=== PATIENT | male | born 1990 | race Caucasian/White ===

== ENCOUNTER 2018-09-15 20:47 | Emergency (ER) | payer OTHER ==
--- OUTSIDE RECORDS SUMMARY | 2018-09-15 20:55 | XMS REPORT | Continuity of Care Document ---
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 Family History Date Family Member(s) Observation Comments General No Current Problems Social History Type Date Description Comments Sex Unknown Lives With Alone Hand Dominance Right-handed ETOH Use Denies alcohol use Tobacco Use Start: Unknown Patient has never smoked Recreational Drug Use Denies Drug Use Smoking Status Reviewed: 09/10/18 Patient has never smoked Exercise Type/Frequency Exercises regularly Allergies, Adverse Reactions, Alerts Description No Known Drug Allergies Medications Active Medications SIG Qnty Indications Ordering Provider Date Tumeric 500 mg once a Unknown day Magnesium 1 tab po every Unknown 250mg Tablets other day Amitriptyline HCL 1 po qd for 5 Unknown 25mg days the 2 tabs Tablets po qd for 2 weeks then 3 tabs po qd Indomethacin 1 tab po tid Unknown 25mg Capsules Propranolol HCL ER 1 by mouth Unknown 80mg Caps every day ER 24HR Vitamin B-Complex 1 by mouth Unknown Tablets every day Co Q-10 1 by mouth qd Unknown 100mg Capsules History Medications Amitriptyline HCL Pedro Delaney, 09/10/2018 - 10mg 09/09/2018 Tablets Verapamil HCL 1 tab po bid for 90tabs Pedro Delaney, 08/15/2018 - 80mg 4 days then 1 09/09/2018 Tablets tab po q am and 2 tabs po q pm Prednisone prednisone5 45tabs Pedro Delaney, 08/09/2018 - 10mg Tablets pills in am by 09/09/2018 mouthfor 3 days; 4 pills for 3days;3 pills for 3 days; 2 pills for 3 days1 pill 3 days then stop No Active Medications Unknown 11/21/2016 - 08/02/2018 No Active Medications Unknown 10/13/2016 - 10/13/2016 Naproxen 1 tablet with 60tabs M25.552 Neno F 10/13/2016 - 500mg Tablets food by mouth MD Tk 11/20/2016 twice a day Amitriptyline HCL Unknown - 10mg 09/10/2018 Tablets Vital Signs Date Vital Result Comment 09/10/2018 9:07am Height 67 inches 5'7" Weight 155.00 lb Heart Rate 72 /min BP Systolic Sitting 102 mmHg BP Diastolic Sitting 68 mmHg Respiratory Rate 15 /min BMI (Body Mass Index) 24.3 kg/m2 08/02/2018 11:11am Height 67 inches 5'7" Weight 155.00 lb Heart Rate 80 /min BP Systolic 132 mmHg BP Diastolic 82 mmHg BMI (Body Mass Index) 24.3 kg/m2 11/29/2016 2:39pm Height 67 inches 5'7" Weight 155.00 lb Heart Rate 64 /min BP Systolic 120 mmHg BP Diastolic 70 mmHg Body Temperature 97.2 F Pain Level 2 BMI (Body Mass Index) 24.3 kg/m2 11/21/2016 1:22pm Height 67 inches 5'7" Weight 155.00 lb BP Systolic 136 mmHg BP Diastolic 80 mmHg Respiratory Rate 20 /min Pain Level 3 BMI (Body Mass Index) 24.3 kg/m2 10/13/2016 1:21pm Height 67 inches 5'7" Weight 155.00 lb BP Systolic 122 mmHg BP Diastolic 84 mmHg Respiratory Rate 17 /min Body Temperature 97.6 F Pain Level 4 BMI (Body Mass Index) 24.3 kg/m2 Results Test Date Facility Test Result H/L Range Note Xray 08/30/2018 [facility] MRI Thoracic Spine <pending> [address] [address] [phone] Encounters Type Date Location Provider Dx Diagnosis Office Visit 09/10/2018 [facility] Pedro Delaney, R51 Headache 9:00a [facility] MD Office Visit 08/02/2018 [facility] Pedro Delaney, R51 Headache 10:30a Office Visit 11/29/2016 [facility] Vivi Garduno, M25.552 Pain in left 2:30p Kia VELASQUEZ hip 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 He is seeing [facility] end of August and hopefully will be able to go to [place] for 4 months shortly after that and I will see him when he gets back. However if he stays here due to headache he will call here and I will see him sometime in September - he willtime things so that I see him after he completes a course of treatment with [facility].Follow up:5 MONTHS
[2018-09-15 21:01] VITALS: BP 142/99
[2018-09-15] MEDS ORDERED: LORazepam INJ* 2 MG/ML 1 ML VIAL IV PUSH ONE (21:23)
[2018-09-15] MEDS ORDERED: Lorazepam PYXIS KEY PRN (21:23)
[2018-09-15] MEDS ORDERED: NS 0.9% 1000 ML** 1,000 ML IV ONE (21:25)
[2018-09-15] MEDS ORDERED: NS 0.9% 1000 ML** 1,000 ML IV SCH (21:30)
[2018-09-15] MEDS ORDERED: Lorazepam PYXIS KEY ONE (21:35)
--- NOTE | 2018-09-15 22:27 | UC ---
Dizzy HPI HPI Summary: ONSET OF EXTREME DIZZINESS, LIGHTHEADEDNESS, TINGLING IN THE FACE/FINGERS AND PRESSURE IN THE HEAD ABOUT AN HOUR SYSTEMS ENG WHILE EATING DINNER. DENIES ANY ACUTE STRESSORS IN HIS LIFE. HAS A HISTORY OF CHRONIC HEADACHES AND HAS BEEN TAKING DAILY AMITRIPTYLINE AND PROPRANOLOL WITH MARGINAL EFFICACY. RECENTLY STOPPED A 10 DAY COURSE OF INDOMETHACIN. STATES THIS DOES NOT FEEL ANYTHING LIKE HIS NORMAL CHRONIC HEADACHES. HAD MRI BRAIN 07/20/18 THAT WAS NORMAL. NO RECENT TRAUMA. STATES DIZZINESS IS WORSE WHEN HE MOVES HIS HEAD AROUND BUT DOES NOT ENTIRELY GO AWAY EVEN WHEN HE IS STILL. - History Of Current Complaint Chief Complaint: UCDizziness Stated Complaint: LIGHT HEADED Time Seen by Provider: 09/15/18 21:05 Hx Obtained From: Patient Onset/Duration: Sudden Onset, Lasting Hours, Still Present Timing: Constant Severity Initially: Moderate Severity Currently: Moderate Pain Intensity: 0 Pain Scale Used: 0-10 Numeric Character: Lightheaded, Dizzy Aggravating Factor(s): Change In Head Position Alleviating Factor(s): Rest Associated Signs And Symptoms: Negative: Nausea, Tinnitus, SOB, Palpitations - Allergies/Home Medications Allergies/Adverse Reactions: Allergies Allergy/AdvReac Type Severity Reaction Status Date / Time No Known Allergies Allergy Verified 09/15/18 20:55 Home Medications: Home Medications Amitriptyline TAB* [Elavil TAB*] 50 mg PO BEDTIME 09/15/18 [History Confirmed ] Propranolol TAB* [Inderal TAB*] 80 mg PO DAILY 09/15/18 [History Confirmed 09/15] PMH/Surg Hx/FS Hx/Imm Hx Other Neurological History: CHRONIC HEADACHE - Surgical History Surgical History: Yes Surgery Procedure, Year, and Place: 05/2015 RIGHT RECTUS ABDOMINUS REPAIR; 2016 LEFT HIP ARTHROSCOPY; - Family History Known Family History: Positive: Non-Contributory - Social History Alcohol Use: None Alcohol Amount: 3 Substance Use Type: Marijuana Substance Use Comment - Amount & Last Used: today Smoking Status (MU): Never Smoked Tobacco Review of Systems All Other Systems Reviewed And Are Negative: Yes Constitutional: Positive: Negative Respiratory: Positive: Negative Cardiovascular: Positive: Negative Gastrointestinal: Positive: Negative Neurological: Positive: Headache, Paresthesia - FACE , FINGERS, Other - DIZZY Physical Exam Triage Information Reviewed: Yes Appearance: Well-Appearing, No Pain Distress, Well-Nourished Vital Signs: Initial Vital Signs Temp 97.4 F 09/15/18 20:57 Pulse 85 09/15/18 20:57 Resp 20 09/15/18 20:57 BP 142/99 09/15/18 20:57 Pulse Ox 98 09/15/18 20:57 Laboratory Last Values POC Glucose (mg/dL) 114 mg/dL (70-100) H 09/15/18 21:29 Vital Signs Reviewed: Yes Eyes: Positive: Conjunctiva Clear, Other: - PERRL, EOMI ENT: Positive: Hearing grossly normal, Pharynx normal, TMs normal Neck: Positive: Supple, Nontender, No Lymphadenopathy Respiratory Exam: Normal Cardiovascular Exam: Normal Abdomen Description: Positive: Soft Musculoskeletal: Positive: No Edema Neurological: Positive: Alert Psychological: Positive: Age Appropriate Behavior Skin: Negative: Rashes Re-Evaluation - Re-Evaluation First Eval Re-Evaluation Time: 22:30 - SLIGHT IMPROVEMENT AFTER 1L NS AND 1MG ATIVAN Change: Improved Dizzy Course/Dx - Course Course Of Treatment: PATIENT FELT SLIGHTLY BETTER AFTER 1 L OF NORMAL SALINE AND 1 MG OF ATIVAN. HIS SYMPTOMS MAY BE RELATED TO ANXIETY HOWEVER HE STATES THERE IS NO REASON FOR HIM TO BE OVERLY ANXIOUS OTHER THAN HIS CURRENT SYMPTOMS. DISCUSSED WITH HIM TRANSFER TO THE ER FOR FURTHER EVALUATION INCLUDING POSSIBLE IMAGING AND LABS. HE DECLINES AND STATES HE WILL FOLLOW-UP WITH HIS NEUROLOGIST IN [facility]. HE WILL GO TO THE ER WITHOUT FAIL IF HIS SYMPTOMS WORSEN. - Differential Dx/Diagnosis Provider Diagnosis: Dizziness Discharge - Sign-Out/Discharge Documenting (check all that apply): Patient Departure All imaging exams completed and their final reports reviewed: No Studies - Discharge Plan Condition: Stable Disposition: HOME Patient Education Materials: Dizziness (ED) Referrals: Pedro Delaney MD [Medical Doctor] - If Needed Alfred Victoria MD [Primary Care Provider] - If Needed Additional Instructions: YOU FELT SLIGHTLY BETTER AFTER 1 L OF NORMAL SALINE AND 1 MG OF ATIVAN. WE DISCUSSED TRANSFER TO THE EMERGENCY ROOM FOR FURTHER EVALUATION OF YOUR SYMPTOMS BUT YOU HAVE DECLINED IN FAVOR OF CAREFUL OBSERVATION AT HOME WHICH I THINK IS REASONABLE. CALL YOUR NEUROLOGIST IN [facility] FIRST THING MONDAY MORNING. GO TO THE ER WITHOUT FAIL IF YOU DEVELOP WORSENING SYMPTOMS. - Billing Disposition and Condition Condition: STABLE Disposition: Home
== END 2018-09-15 22:35 | disposition home or self-care (01) ==
LOC: EDUNIT# → UCEAST 20:47
DX: R42 Dizziness and giddiness (principal); R51 Headache
CPT/HCPCS: 93005; 96361; 96374; 99211; G0463; J2060

== ENCOUNTER 2020-04-15 16:32 | Inpatient (IN) ==
[2020-04-15] MEDS ORDERED: Midazolam 2 mg/2 ml VIAL 1 mg/ml 2 ml VIAL (2 mg) ONE (16:57)
[2020-04-15] MEDS ORDERED: fentaNYL 250 mcg/5 ml 50 MCG/ML 5 ml VIAL (250 MCG) ONE (16:57)
[2020-04-15] MEDS ORDERED: Rocuronium 50 mg VIAL 10 mg/ml 5 ml VIAL (50 mg) ONE (16:57)
[2020-04-15] MEDS ORDERED: Lidocaine 2% PF 5 ML VIAL ONE (16:58)
[2020-04-15] MEDS ORDERED: Phenylephrine 40 mcg/mL 10mL (400mcg) SYRINGE ONE (16:58)
[2020-04-15] MEDS ORDERED: Dexamethasone IV 4 MG/ML VIAL 1 ml VIAL ONE (17:00)
[2020-04-15] MEDS ORDERED: Propofol 10 MG/ML 20 ML BTL ONE (17:00)
[2020-04-15] MEDS ORDERED: EPHEDrine (Pressors) 50 MG/ML VIAL ONE (17:00)
[2020-04-15] MEDS ORDERED: Sterile Water for Inj 10 ML ONE (17:00)
[2020-04-15 17:39] LABS: ABS Eosinophils 0.1 10^3/ul (0-0.6); ABS Lymphocytes 1.7 10^3/ul (1.0-4.8); ABS Monocytes 0.6 10^3/ul (0-0.8); ABS Neutrophils 4.5 10^3/ul (1.5-7.7); Eosinophil % 0.8 %; Hematocrit 35 % (42-52); Mean Corpuscular HGB Conc 34 g/dL (31-36); Mean Corpuscular Hemoglobin 32 pg (27-31); Mean Corpuscular Volume 92 fL (80-94); Mean Platelet Volume 7.8 fL (7.4-10.4); Platelet Count 280 10^3/uL (150-450); Red Blood Count 3.77 10^6 /uL (4.18-5.48); Red Cell Distribution Width 13 % (10-15)
[2020-04-15 18:08] LABS: Albumin 4.5 g/dL (3.2-5.2); Albumin/Globulin Ratio 1.6 (1-3); BUN/Creatinine Ratio 13.4 (8-20); Calcium 9.6 mg/dL (8.6-10.3); EGFR African American 135.4 (>60); EGFR Non-African American 111.9 (>60); Globulin 2.8 g/dL (2-4); Potassium 4.5 mmol/L (3.5-5.0); Total Bilirubin 0.5 mg/dL (0.2-1.0); Total Protein 7.3 g/dL (6.4-8.9)
[2020-04-15] MEDS ORDERED: HYDROcodone/ACETAMIN 5/325 mg TAB PO PRN (18:08)
[2020-04-15] MEDS ORDERED: Lactated Ringers 1000 ml BAG 1,000 ML IV SCH (19:00)
[2020-04-15] MEDS: HYDROmorphone 0.5 MG/0.5 ML SYRINGE IV SLOW PU PRN (19:27)
[2020-04-16] MEDS: HYDROmorphone 0.5 MG/0.5 ML SYRINGE IV SLOW PU PRN ×5 (01:18→21:08)
[2020-04-16 04:29] LABS: ABS Eosinophils 0.1 10^3/ul (0-0.6); ABS Lymphocytes 2.4 10^3/ul (1.0-4.8); ABS Monocytes 0.8 10^3/ul (0-0.8); ABS Neutrophils 3.9 10^3/ul (1.5-7.7); Eosinophil % 1.1 %; Hematocrit 34 % (42-52); Hemoglobin 11.7 g/dL (14.0-18.0); Lymphocyte % 33.3 %; Mean Corpuscular HGB Conc 34 g/dL (31-36); Mean Corpuscular Hemoglobin 32 pg (27-31); Mean Corpuscular Volume 94 fL (80-94); Platelet Count 262 10^3/uL (150-450); Red Blood Count 3.65 10^6 /uL (4.18-5.48); Red Cell Distribution Width 13 % (10-15); White Blood Count 7.2 10^3/uL (3.5-10.8)
[2020-04-16] MEDS ORDERED: Bupivacaine 0.25% SDV 30 ML ONE (07:05)
[2020-04-16] MEDS ORDERED: ceFAZolin 2 GM PREMIX 2 GM/50 ML BAG ONE (07:06)
[2020-04-16] MEDS ORDERED: fentaNYL 100 mcg/2 ml 50 MCG/ML VIAL ONE ×2 (07:36→09:23)
[2020-04-16] MEDS ORDERED: Midazolam 2 mg/2 ml VIAL 1 mg/ml 2 ml VIAL (2 mg) ONE (07:36)
[2020-04-16] MEDS ORDERED: Rocuronium 50 mg VIAL 10 mg/ml 5 ml VIAL (50 mg) ONE ×2 (07:36→08:38)
[2020-04-16] MEDS ORDERED: Ondansetron 4 mg VIAL 2 MG/ML 2 ml VIAL ONE (08:13)
[2020-04-16] MEDS ORDERED: HYDROmorphone 1 MG/1 ML SYRINGE ONE ×2 (08:13→09:16)
[2020-04-16] MEDS ORDERED: Metoclopramide 5 MG/ML VIAL (10 mg) ONE (08:13)
[2020-04-16] MEDS ORDERED: Dexamethasone IV 4 MG/ML VIAL 1 ml VIAL ONE ×2 (08:13→08:38)
[2020-04-16] MEDS: HYDROmorphone 1 MG/1 ML SYRINGE IV PRN ×2 (09:22→09:32)
[2020-04-16] MEDS: fentaNYL 100 mcg/2 ml 50 MCG/ML VIAL IV PRN ×4 (09:24→10:00)
[2020-04-16] MEDS ORDERED: Ondansetron 4 mg VIAL 2 MG/ML 2 ml VIAL IV PRN (09:38)
[2020-04-16] MEDS ORDERED: Naloxone 0.4 mg VIAL 0.4 mg/ml 1 ml VIAL IV PRN (09:38)
[2020-04-16] MEDS ORDERED: DiMENhydriNATE IV 50 mg/ml 1 ml VIAL IV PUSH PRN (09:38)
[2020-04-16] MEDS ORDERED: Acetaminophen IV 1 GM/100ML 1,000 MG/100 ML VIAL IVPB ONE (09:38)
[2020-04-16] MEDS ORDERED: Acetaminophen IV 1 GM/100ML 100 ML ONE (09:40)
[2020-04-16] MEDS ORDERED: Lidocaine 2% JELLY 6 ML TOPICAL PRN (11:51)
[2020-04-16] MEDS: Ondansetron 4 mg VIAL 2 MG/ML 2 ml VIAL IV PRN (13:07)
[2020-04-16 17:32] LABS: Urine Appearance Clear; Urine Bilirubin Negative (Negative); Urine Blood Negative (Negative); Urine Color Yellow; Urine Glucose Negative (Negative); Urine Ketones Negative (Negative); Urine Nitrite Negative (Negative); Urine Protein Negative (Negative); Urine Specific Gravity 1.015 (1.010-1.030); Urine Urobilinogen Negative (Negative)
[2020-04-16] MEDS: HYDROcodone/ACETAMIN 5/325 mg TAB PO PRN (17:50)
[2020-04-16] MEDS: Morphine 2 MG/ML SYRINGE ONE ×2 (18:33→18:37)
[2020-04-17] MEDS: HYDROcodone/ACETAMIN 5/325 mg TAB PO PRN ×2 (00:38→16:04)
[2020-04-17] MEDS ORDERED: Calcium Carb (TUMS) 500 mg CHEW TAB PO PRN (00:38)
[2020-04-17] MEDS: Ondansetron 4 mg VIAL 2 MG/ML 2 ml VIAL IV PRN (00:39)
[2020-04-17 04:40] LABS: Calcium 9.2 mg/dL (8.6-10.3); EGFR African American 133.5 (>60); EGFR Non-African American 110.3 (>60); Potassium 3.8 mmol/L (3.5-5.0)
[2020-04-17] MEDS: HYDROmorphone 0.5 MG/0.5 ML SYRINGE IV SLOW PU PRN (05:50)
[2020-04-17 07:45] LABS: ABS Lymphocytes 1.6 10^3/ul (1.0-4.8); ABS Monocytes 0.8 10^3/ul (0-0.8); ABS Neutrophils 6.7 10^3/ul (1.5-7.7); Eosinophil % 0.1 %; Hematocrit 31 % (42-52); Hemoglobin 10.6 g/dL (14.0-18.0); Lymphocyte % 17.7 %; Mean Corpuscular HGB Conc 35 g/dL (31-36); Mean Corpuscular Hemoglobin 32 pg (27-31); Mean Corpuscular Volume 93 fL (80-94); Mean Platelet Volume 8.8 fL (7.4-10.4); Platelet Count 279 10^3/uL (150-450); Red Blood Count 3.29 10^6 /uL (4.18-5.48); Red Cell Distribution Width 13 % (10-15); White Blood Count 9.1 10^3/uL (3.5-10.8)
[2020-04-17] MEDS: DULoxetine DR 30 mg CAP PO SCH (12:44)
[2020-04-17] MEDS: Lidocaine 2% JELLY 6 ML TOPICAL SCH (21:19)
[2020-04-18] MEDS: DULoxetine DR 30 mg CAP PO SCH (09:40)
[2020-04-18] MEDS: Lidocaine 2% JELLY 6 ML TOPICAL SCH (09:41)
[2020-04-18 11:27] VITALS: BP 136/77
[2020-04-20 12:17] LABS: Chlamydia trachomatis NAA Negative (Negative); Neisseria gonorrhoeae (GC) NAA Negative (Negative)
== END 2020-04-18 15:02 | disposition home or self-care (01) | DRG 909 ==
LOC: ED 16:32 → SSU 16:32
PROVIDERS: ADMIT Surgery; ATTEND Surgery